=== PATIENT | male | born 1980 | race Caucasian/White ===

== ENCOUNTER 2017-05-21 02:47 | Emergency (ER) | payer MEDICAID ==
[~2017-05-21] VITALS: Ht 182.9 cm; Wt 81.8 kg
[~2017-05-21 02:47] MED LIST: CYCL-1 PO; CYCL-394 PO; HYDR-569 PO; METH-360 PO; NAPR-56 PO; NO HOME MEDS; ONDA8TAB9 PO
[2017-05-21] MEDS ORDERED: LORazepam 1 MG tablet PO ONE (03:25)
[2017-05-21] MEDS ORDERED: LORA-269 PO (04:19)
[2017-05-21 04:29] VITALS: BP 109/68
== END 2017-05-21 04:32 | disposition home or self-care (01) ==
LOC: ER 02:47
DX: F41.9 Anxiety disorder, unspecified (principal); G43.909 Migraine, unspecified, not intractable, without status migrainosus; G89.29 Other chronic pain; F31.9 Bipolar disorder, unspecified; F12.10 Cannabis abuse, uncomplicated; Z88.6 Allergy status to analgesic agent
CPT/HCPCS: 99284

== ENCOUNTER 2017-11-15 18:13 | Emergency (ER) | payer MEDICAID ==
[~2017-11-15] VITALS: Ht 182.9 cm; Wt 97.2 kg
[~2017-11-15 18:13] MED LIST changes: +HYDR-4383 PO; -HYDR-569 PO; +LORA-269 PO
[2017-11-15 18:26] VITALS: BP 122/76
[2017-11-15] MEDS ORDERED: SULF1TAB49 PO (19:29)
== END 2017-11-15 20:06 | disposition home or self-care (01) ==
LOC: ER 18:13
DX: L02.31 Cutaneous abscess of buttock (principal); L03.317 Cellulitis of buttock; G43.909 Migraine, unspecified, not intractable, without status migrainosus; G89.29 Other chronic pain; F12.90 Cannabis use, unspecified, uncomplicated; Z87.442 Personal history of urinary calculi; Z88.6 Allergy status to analgesic agent
CPT/HCPCS: 10060; 99283

== ENCOUNTER 2018-01-31 00:27 | Emergency (ER) | payer MEDICAID ==
[~2018-01-31] VITALS: Ht 182.9 cm; Wt 100.0 kg
[2018-01-31 00:27] VITALS: BP 108/69
== END 2018-01-31 03:36 | disposition left against medical advice (07) ==
LOC: ER 00:27
DX: R07.81 Pleurodynia (principal); Z53.21 Procedure and treatment not carried out due to patient leaving prior to being seen by health care provider

== ENCOUNTER 2018-02-02 00:20 | Emergency (ER) | payer MEDICAID ==
[~2018-02-02] VITALS: Ht 182.9 cm; Wt 93.1 kg
[2018-02-02] MEDS ORDERED: cyclobenzaprine 10mg tablet PO ONE (03:45)
[2018-02-02] MEDS ORDERED: naproxen 500mg tablet PO ONE (03:45)
[2018-02-02] MEDS ORDERED: NAPR-56 PO (03:46)
[2018-02-02] MEDS ORDERED: CYCL-1 PO (03:46)
[2018-02-02 04:01] VITALS: BP 112/75
== END 2018-02-02 04:03 | disposition home or self-care (01) ==
LOC: ER 00:20
DX: S20.211A Contusion of right front wall of thorax, initial encounter (principal); M62.838 Other muscle spasm; G43.909 Migraine, unspecified, not intractable, without status migrainosus; G89.29 Other chronic pain; F12.90 Cannabis use, unspecified, uncomplicated; Z98.890 Other specified postprocedural states; Z87.442 Personal history of urinary calculi; Z88.6 Allergy status to analgesic agent; Z79.899 Other long term (current) drug therapy; X50.1XXA Overexertion from prolonged static or awkward postures, initial encounter; Y93.01 Activity, walking, marching and hiking; Y92.89 Other specified places as the place of occurrence of the external cause; Y99.9 Unspecified external cause status
CPT/HCPCS: 71045; 99283

== ENCOUNTER 2018-02-26 23:16 | Emergency (ER) | payer MEDICAID, OTHER ==
[~2018-02-26] VITALS: Ht 182.9 cm; Wt 93.2 kg
[2018-02-26 23:21] VITALS: BP 131/89
[2018-02-26] MEDS ORDERED: SULF1TAB48 PO (23:53)
[2018-02-26] MEDS ORDERED: HYDR-4383 PO (23:53)
[2018-02-26] MEDS ORDERED: sulfamethoxazole/trimethoprim DS (800/160mg) tablet PO ONE (23:55)
== END 2018-02-27 01:07 | disposition home or self-care (01) ==
LOC: ER 23:17
DX: J34.0 Abscess, furuncle and carbuncle of nose (principal); G43.909 Migraine, unspecified, not intractable, without status migrainosus; F12.90 Cannabis use, unspecified, uncomplicated; G89.29 Other chronic pain; Z87.442 Personal history of urinary calculi; Z88.6 Allergy status to analgesic agent; Z79.899 Other long term (current) drug therapy; Z98.890 Other specified postprocedural states
CPT/HCPCS: 99283

== ENCOUNTER 2018-07-04 03:10 | Emergency (ER) | payer SELFPAY ==
[~2018-07-04] VITALS: Ht 182.9 cm; Wt 81.0 kg
[2018-07-04 03:13] VITALS: BP 112/82
[2018-07-04] MEDS ORDERED: ONDA4TAB6 PO (03:39)
[2018-07-04] MEDS ORDERED: HYDR-3965 PO (03:39)
[2018-07-04] MEDS ORDERED: AMOX500C2 PO ×2 (03:39→03:47)
[2018-07-04] MEDS ORDERED: acetaminophen 325mg tablet PO ONE (03:50)
== END 2018-07-04 04:03 | disposition home or self-care (01) ==
LOC: ER 03:10
DX: K04.7 Periapical abscess without sinus (principal); G43.909 Migraine, unspecified, not intractable, without status migrainosus; G89.29 Other chronic pain; F12.90 Cannabis use, unspecified, uncomplicated; Z98.890 Other specified postprocedural states; Z88.6 Allergy status to analgesic agent; Z79.899 Other long term (current) drug therapy
CPT/HCPCS: 99283

== ENCOUNTER 2018-09-15 00:30 | Emergency (ER) | payer SELFPAY ==
[~2018-09-15] VITALS: Ht 182.9 cm; Wt 88.6 kg
[~2018-09-15 00:30] MED LIST changes: +AMOX500C2 PO
--- NOTE | 2018-09-15 00:55 | NUR ---
aware, EKG WNL per doctor no protocol orders
--- NOTE | 2018-09-15 01:30 | NUR ---
Lois leon in [facility] - 09/15/18 at 0155 by EMELIA Maury Easley
--- NOTE | 2018-09-15 01:55 | NUR ---
Inform Dr Bennett regarding orders for patient, no orders at this time.
[2018-09-15] MEDS ORDERED: famotidine/PF 10 mg/ml inj IV ONE (02:10)
[2018-09-15] MEDS ORDERED: pantoprazole 40 MG vial IV ONE (02:10)
[2018-09-15] MEDS ORDERED: ondansetron/PF 4mg/2ml inj IV ONE (02:10)
[2018-09-15] MEDS ORDERED: normal saline 1000ML IV soln IVB ONE ×2 (02:10→04:25)
[2018-09-15] MEDS ORDERED: ESOMEPRAZOLE 40 MG VIAL IV ONE (02:15)
[2018-09-15 02:34] LABS: BASOPHILS # (AUTO) 0.1 X10'3 (0-0.2); BASOPHILS % (AUTO) 0.9 % (0-1); EOSINOPHILS # (AUTO) 0.1 X10'3 (0-0.9); EOSINOPHILS % (AUTO) 0.6 % (0-6); HEMOGLOBIN 12.9 g/dl (14.0-17.9); LYMPHOCYTES # (AUTO) 2.2 X10'3 (1.1-4.8); LYMPHOCYTES % (AUTO) 24.2 % (21-51); MEAN CORPUSCULAR HEMOGLOBIN 28.3 PG (27.0-31.0); MEAN CORPUSCULAR VOLUME 83.4 FL (78-98); MEAN PLATELET VOLUME 8.1 FL (7.4-10.4); MONOCYTES # (AUTO) 0.7 X10'3 (0-0.9); MONOCYTES % (AUTO) 7.6 % (2-12); NEUTROPHILS % (AUTO) 66.7 % (42-75); PLATELET COUNT 174 X10'3 (140-440); RED BLOOD COUNT 4.56 X10'6 (4.70-6.10); RED CELL DISTRIBUTION WIDTH 13.1 % (11.5-14.5); WHITE BLOOD COUNT 8.9 X10'3 (4.5-11.0)
[2018-09-15 02:47] LABS: ALANINE AMINOTRANSFERASE 23 U/L (12-78); ALBUMIN 3.7 G/DL (3.4-5.0); ALBUMIN/GLOBULIN RATIO 1.1 (1.1-1.5); ALKALINE PHOSPHATASE 42 IU/L (46-116); ANION GAP 5 (8-16); ASPARTATE AMINO TRANSFERASE 14 U/L (10-37); BILIRUBIN,TOTAL 0.3 MG/DL (0.1-1.0); BLOOD UREA NITROGEN 10 MG/DL (7-18); BUN/CREATININE RATIO 8.8 (5.4-32.0); CALCIUM 8.8 MG/DL (8.5-10.1); CHLORIDE 105 MMOL/L (99-107); CREATININE 1.14 MG/DL (0.60-1.10); GLUCOSE 87 MG/DL (70-104); LIPASE 114 U/L (73-393); SODIUM 141 MMOL/L (135-145); eGFR 73 ML/MIN
[2018-09-15 02:48] LABS: H PYLORI ANTIBODY NEGATIVE (Neg)
[2018-09-15] MEDS ORDERED: OMEP20CA11 PO (04:46)
[2018-09-15] MEDS ORDERED: ONDA4TAB6 PO (04:46)
[2018-09-15 05:11] VITALS: BP 122/68
== END 2018-09-15 05:12 | disposition home or self-care (01) ==
LOC: ER 00:31
DX: A08.4 Viral intestinal infection, unspecified (principal); R19.7 Diarrhea, unspecified; R11.2 Nausea with vomiting, unspecified; G43.909 Migraine, unspecified, not intractable, without status migrainosus; G89.29 Other chronic pain; F31.9 Bipolar disorder, unspecified; F12.90 Cannabis use, unspecified, uncomplicated; Z87.442 Personal history of urinary calculi; Z98.890 Other specified postprocedural states; Z88.8 Allergy status to other drugs, medicaments and biological substances; Z79.899 Other long term (current) drug therapy
CPT/HCPCS: 36415; 74176; 80053; 83605; 83690; 85025; 86677; 93005; 96361; 96374; 96375; 99284; J2405; J3490; J7030

== ENCOUNTER 2018-11-01 18:59 | Emergency (ER) | payer SELFPAY ==
[~2018-11-01] VITALS: Ht 182.9 cm; Wt 85.4 kg
[~2018-11-01 18:59] MED LIST changes: +OMEP20CA11 PO; +ONDA4TAB6 PO
[2018-11-01] MEDS ORDERED: FLUT16SP2 BOTHNARES (21:00)
[2018-11-01] MEDS ORDERED: AMOX500C2 PO (21:00)
[2018-11-01] MEDS ORDERED: LIDOcaine 4% (40 mg/ml) topical solution 50ml TP ONE (21:05)
[2018-11-01 21:41] VITALS: BP 110/61
== END 2018-11-01 21:47 | disposition home or self-care (01) ==
LOC: ER 18:59
DX: J34.89 Other specified disorders of nose and nasal sinuses (principal); G43.909 Migraine, unspecified, not intractable, without status migrainosus; G89.29 Other chronic pain; F31.9 Bipolar disorder, unspecified; Z87.442 Personal history of urinary calculi; Z98.890 Other specified postprocedural states; Z88.6 Allergy status to analgesic agent; Z79.2 Long term (current) use of antibiotics; Z79.899 Other long term (current) drug therapy
CPT/HCPCS: 99283

== ENCOUNTER 2020-10-19 00:03 | Emergency (ER) | payer BC ==
[~2020-10-19] VITALS: Ht 182.9 cm; Wt 80.8 kg
[~2020-10-19 00:03] MED LIST changes: +FLUT16SP2 BOTHNARES; -OMEP20CA11 PO; +OMEP20CA15 PO
[2020-10-19 00:07] VITALS: BP 113/71
== END 2020-10-19 03:21 | disposition home or self-care (01) ==
LOC: ER 00:04
DX: U07.1 COVID-19 (principal); R07.89 Other chest pain; G43.909 Migraine, unspecified, not intractable, without status migrainosus; G89.29 Other chronic pain; F31.9 Bipolar disorder, unspecified; F12.90 Cannabis use, unspecified, uncomplicated; Z87.442 Personal history of urinary calculi; Z72.89 Other problems related to lifestyle; Z98.890 Other specified postprocedural states; Z88.5 Allergy status to narcotic agent; Z79.899 Other long term (current) drug therapy
CPT/HCPCS: 71045; 99283

== ENCOUNTER 2021-09-06 19:43 | Emergency (ER) | payer BC ==
[~2021-09-06] VITALS: Ht 182.9 cm; Wt 88.6 kg
[2021-09-06 19:56] VITALS: BP 140/81
[2021-09-06] MEDS ORDERED: proCHLORperazine 10 MG/2 ml inj IV ONE (21:30)
[2021-09-06] MEDS ORDERED: diphenhydrAMINE 50 mg/ml inj IV ONE (21:30)
[2021-09-06] MEDS ORDERED: normal saline 1000ML IV soln IVB ONE (21:30)
== END 2021-09-06 21:47 | disposition home or self-care (01) ==
LOC: ER 19:44
DX: G43.909 Migraine, unspecified, not intractable, without status migrainosus (principal); G89.29 Other chronic pain; M54.50 Low back pain, unspecified; F31.9 Bipolar disorder, unspecified; F12.90 Cannabis use, unspecified, uncomplicated; Z88.6 Allergy status to analgesic agent
CPT/HCPCS: 99281; J7030

== ENCOUNTER 2024-05-28 19:02 | Emergency (ER) | payer SELFPAY ==
[~2024-05-28] VITALS: Ht 180.3 cm; Wt 82.1 kg
[2024-05-28 19:46] LABS: BASOPHILS # (AUTO) 0.1 X10'3 (0-0.2); BASOPHILS % (AUTO) 1.1 % (0-1); EOSINOPHILS # (AUTO) 0.1 X10'3 (0-0.9); EOSINOPHILS % (AUTO) 1.6 % (0-6); HEMATOCRIT 42.2 % (42.0-52.0); HEMOGLOBIN 14.5 g/dl (14.0-17.9); LYMPHOCYTES # (AUTO) 1.8 X10'3 (1.1-4.8); LYMPHOCYTES % (AUTO) 23.4 % (21-51); MEAN CORPUSCULAR HEMOGLOBIN 28.2 PG (27.0-31.0); MEAN CORPUSCULAR HGB CONC 34.2 g/dL (33.0-36.5); MEAN CORPUSCULAR VOLUME 82.3 FL (78-98); MEAN PLATELET VOLUME 8.2 FL (7.4-10.4); MONOCYTES # (AUTO) 0.5 X10'3 (0-0.9); MONOCYTES % (AUTO) 6.2 % (2-12); NEUTROPHILS # (AUTO) 5.2 X10'3 (1.8-7.7); NEUTROPHILS % (AUTO) 67.7 % (42-75); PLATELET COUNT 194 X10'3 (140-440); RED BLOOD COUNT 5.13 X10'6 (4.70-6.10); RED CELL DISTRIBUTION WIDTH 12.9 % (11.5-14.5); WHITE BLOOD COUNT 7.7 X10'3 (4.5-11.0)
[2024-05-28] MEDS ORDERED: iohexol 300mg/ml 100ml inj. ONE (19:57)
[2024-05-28 19:58] LABS: ALANINE AMINOTRANSFERASE 38 U/L (12-78); ALBUMIN 3.8 G/DL (3.4-5.0); ALBUMIN/GLOBULIN RATIO 1.4 (1.1-1.5); ALKALINE PHOSPHATASE 48 IU/L (46-116); ANION GAP 4 (8-16); ASPARTATE AMINO TRANSFERASE 30 U/L (10-37); BILIRUBIN,TOTAL 0.2 MG/DL (0.1-1.0); BLOOD UREA NITROGEN 26 MG/DL (7-18); BUN/CREATININE RATIO 21.1 (10.0-20.0); CALCIUM 8.7 MG/DL (8.5-10.1); CHLORIDE 104 MMOL/L (99-107); CREATININE 1.23 MG/DL (0.60-1.10); GLUCOSE 95 MG/DL (70-104); POTASSIUM 3.8 MMOL/L (3.5-5.1); SODIUM 139 MMOL/L (135-145); TOTAL CARBON DIOXIDE 30.9 MMOL/L (24-32); TOTAL PROTEIN 6.6 G/DL (6.4-8.2); eCRCL 84 ML/MIN; eGFR 65 ML/MIN
[2024-05-28 20:54] LABS: BILIRUBIN,URINE NEGATIVE (Neg); CLARITY,URINE CLEAR (Clear); COLOR,URINE YELLOW (Yellow); GLUCOSE, URINE NEGATIVE (Neg); KETONES,URINE NEGATIVE (Neg); LEUKOCYTE ESTERASE ,URINE NEGATIVE (Neg); NITRITES, URINE NEGATIVE (Neg); OCCULT BLOOD,URINE NEGATIVE (Neg); PROTEIN,URINE NEGATIVE (Neg); UROBILINOGEN,URINE 0.2 E.U/dL (0.2-1.0)
[2024-05-28 20:59] LABS: UA COLLECTION TYPE CLN CATCH MIDSTREAM
[2024-05-28 21:47] VITALS: BP 106/71; PULSE 98; RESP 18; TEMP 98.7; O2SAT 100
== END 2024-05-28 21:49 | disposition home or self-care (01) ==
LOC: ER 19:03
DX: R30.0 Dysuria (principal); K59.00 Constipation, unspecified; Z88.8 Allergy status to other drugs, medicaments and biological substances
CPT/HCPCS: 36415; 51798; 74177; 76870; 80053; 81003; 85025; 87491; 87591; 93976; 99285; Q9967

== ENCOUNTER 2024-08-08 15:59 | Emergency (ER) | payer MEDICAID ==
[~2024-08-08] VITALS: Ht 180.3 cm; Wt 80.0 kg
[2024-08-08 16:10] VITALS: BP 109/70; PULSE 70; RESP 18; O2SAT 96
--- NOTE | 2024-08-08 16:28 | RADIOLOGY REPORT ---
EXAM: DI CHEST,SINGLE VIEW HISTORY: CP COMPARISON: CHEST,SINGLE VIEW on DOS: 10/19/20 TECHNIQUE: PA upright view of the chest was performed. FINDINGS: No pneumothorax, consolidative infiltrates, or pulmonary edema. There is mild central peribronchial t hickening. The heart is not enlarged. IMPRESSION: Mild reactive airways disease. The lungs are otherwise clear.
[2024-08-08 16:29] LABS: MEAN PLATELET VOLUME 7.5 FL (7.4-10.4); RED CELL DISTRIBUTION WIDTH 14.0 % (11.5-14.5)
[2024-08-08 16:42] LABS: CREATININE 1.32 MG/DL (0.60-1.10); TOTAL CARBON DIOXIDE 33.0 MMOL/L (24-32); eCRCL 78 ML/MIN; eGFR 59 ML/MIN
[2024-08-08 16:49] LABS: PRO BRAIN NATRIURETIC PEPTIDE 72 PG/ML (0-125)
--- NOTE | 2024-08-08 17:41 | Physician Documentation ---
History of Present Illness ~ Chief Complaint: Chest Pain Stated Complaint: "I FEEL LIKE I AM HAVING AN ISSUE WITH MY HEART" Time Seen by MD: 17:43 Primary Medical Doctor: LUCÍA [facility] This is a 44-year-old male who presents with three days of left-sided intermittent nonradiating chest pain described as sharp and tight that is reproducible with motion in certain positions but not reproducible with palpation. Patient reports feeling of shortness of breath associated with chest pain. Patient reports no nausea or diaphoresis. Medication Reconciliation Allergies: Coded Allergies: ketorolac (Verified Allergy, Unknown, 05/28/24) Scheduled Amoxicillin Trihydrate (Amoxicillin), 1 CAP PO BID Cyclobenzaprine HCl (Cyclobenzaprine HCl), 10 MG PO TID Cyclobenzaprine* (Cyclobenzaprine*), 1 TABLET PO qhs Fluticasone Propionate (Flonase), 2 SPRAYS BOTHNARES DAILY Hydrocodone/Acetaminophen (Homer 5-325 Tablet), 1-2 TABLET PO Q4H Hydrocodone/Acetaminophen (Homer 5-325 Tablet), 1 TAB PO Q12H PRN Methocarbamol (Robaxin-750), 1 TAB PO Q12H Naproxen (Naproxen), 500 MG PO Q12H Omeprazole (Omeprazole), 2 CAP PO BIDAC Ondansetron (Zofran Odt), 1 TABLET PO Q8H Scheduled PRN Cyclobenzaprine* (Cyclobenzaprine*), 1 TABLET PO Q8H PRN for muscle spasms Hydrocodone/Acetaminophen (Homer 5-325 Tablet), 1 TABLET PO TID PRN for pain Lorazepam (Ativan), 1 TAB PO Q12H PRN for anxiety Ondansetron Hcl (Zofran), 1 TAB PO Q6H PRN for nausea/vomiting Miscellaneous Medications Home Med List (No Home Medications), (Reported) Past Medical History Past Medical History: Migraine, Kidney Stones, Chronic Back Pain, Bipolar Past Surgical History: orthopedic surgeries Other Past Family History: NONE Alcohol Use: Sober Drug Use: marijuana, other Lives with: Spouse, Family Lives In: Home Occupation: employed Review of Systems ROS Nonradiating intermittent chest pain as stated above in the HPI, otherwise all systems are reviewed and negative. Physical Exam Vital Signs: Temperature: 98.7, Source: Temporal, Heart Rate: 70, Respiratory Rate: 18, BP: 109/70, Pulse Oximetry: 96, Weight: 79.950 Oxygen Flow Rate: 0 Physical Exam VITALS: Reviewed and as above. GENERAL: Alert, nontoxic appearing, no apparent distress. RESPIRATORY: No increased work of breathing, no respiratory distress, speaking in full clear sentences, clear lung sounds in all leonardo CHEST: Nontender to palpation CV: Regular rate and rhythm no murmur SKIN: Warm and dry, no rash Progress Results/Orders Results/Orders Vital Signs 08/08/24 08/08/24 16:10 18:15 Temp 98.7 98.7 Pulse 70 Resp 18 B/P (MAP) 109/70 Pulse Ox 96 O2 Flow Rate 0 Laboratory Tests Test 08/08/24 16:18 White Blood Count 6.2 Red Blood Count 5.03 Hemoglobin 14.3 Hematocrit 41.2 L Mean Corpuscular Volume 81.8 Mean Corpuscular Hemoglobin 28.5 Mean Corpuscular Hemoglobin Concent 34.8 Red Cell Distribution Width 14.0 Platelet Count 204 Mean Platelet Volume 7.5 Neutrophils (%) (Auto) 70.3 Lymphocytes (%) (Auto) 21.8 Monocytes (%) (Auto) 6.9 Eosinophils (%) (Auto) 0.1 Basophils (%) (Auto) 0.9 Neutrophils # (Auto) 4.4 Lymphocytes # (Auto) 1.4 Monocytes # (Auto) 0.4 Eosinophils # (Auto) 0.0 Basophils # (Auto) 0.1 CBC Comment Sodium Level 142 Potassium Level 4.9 Chloride Level 106 Carbon Dioxide Level 33.0 H Anion Gap 3 L Blood Urea Nitrogen 12 Creatinine 1.32 H Estimated GFR/1.73 m2 59 BUN/Creatinine Ratio 9.1 L Glucose Level 91 Calcium Level 9.0 Total Bilirubin 0.4 Aspartate Amino Transf (AST/SGOT) 17 Alanine Aminotransferase (ALT/SGPT) 26 Alkaline Phosphatase 49 Troponin I High Sensitivity 4 Pro-B-Type Natriuretic Peptide 72 Total Protein 7.5 Albumin 4.2 Globulin 3.3 Albumin/Globulin Ratio 1.3 Chemistry Comments EKG/XRAY/CT/US/VASC/MRI EKG : Additional Comment EKG at 1606 interpreted by myself as sinus rhythm at a rate of 72, normal axis, no ST segment elevation or depression Chest X-Ray : Additional Comments EXAM: DI CHEST,SINGLE VIEW HISTORY: CP COMPARISON: CHEST,SINGLE VIEW on DOS: 10/19/20 TECHNIQUE: PA upright view of the chest was performed. FINDINGS: No pneumothorax, consolidative infiltrates, or pulmonary edema. There is mild central peribronchial thickening. The heart is not enlarged. IMPRESSION: Mild reactive airways disease. The lungs are otherwise clear. Electronically Signed by:PEG VARGAS MD Date & Time: 08/08/241624 Dictated by: PEG VARGAS MD Dictation date and time: 08/08/24 161 I have reviewed and agree with the radiology report. I have reviewed and interpreted the imaging as: No focal consolidation or pneumonia Heart Score: Heart Score Response (Comments) Value History Moderate Suspicious 1 EKG Normal 0 Age <45 0 Risk Factors No known risk factors 0 Troponin Normal limit 0 Total 1 Medical Decision Making Findings MSE performed in triage and patient returned to ED lobby by nursing staff to await available ED room, ACS workup initiated This 44-year-old male presented with intermittent left-sided nonradiating chest pain for the past three days, it was reassuring that the pain was positional and not exertional. EKG did not demonstrate evidence of ischemia, infarction, or dysrhythmia, troponin was not elevated, other labs did not demonstrate evidence of an electrolyte or metabolic abnormality and chest x-ray did not demonstrate evidence of intrathoracic process. PERC negative. Heart score of one due to moderately suspicious chest pain, otherwise patient does not have risk factors including not a smoker, not a diabetic, no high blood pressure, no hyperlipidemia. Patient is otherwise well-appearing and remainder of physical e xam benign, vital signs stable. Patient is appropriate for outpatient follow up. Patient provided follow up instructions and careful return to care precautions which he verbalized understanding of. Differential Dx:Considerations: Include: angina, aortic dissection, chest wall pain, cholelithiasis, costochondritis, esophageal reflux/spasm, gastritis, herpes zoster, myocardial infarction, pericarditis, pleuritis, pneumonia, pneumothorax, pulmonary embolus Departure Time of Disposition: 18:00 Disposition: 01 HOME / SELF CARE / HOMELESS Impression: Primary Impression: Chest pain Qualified Codes: R07.9 - Chest pain, unspecified Condition: Improved Discharge Instructions: Nonspecific Chest Pain, Adult Additional Instructions: Your EKG, labs, and physical exam were reassuring there were some nonspecific findings on your chest x-ray as we discussed, please follow up with your primary care provider in the next few days. Please return to the emergency department for any new or worsening concerning symptoms. Referrals: NO PRIMARY CARE PROVIDER (PCP) Education Educated: Patient Educated regarding: diagnosis, treatment, prognosis, need for follow up Signature Scribe Signature: No scribe Attestation: The note accurately reflects work and decisions made by me.BETZAIDA Rodarte 08/08/24 20:08 NENITA SALDANA Aug 08, 2024 17:41
[2024-08-08 18:15] VITALS: TEMP 98.7
--- NOTE | 2024-08-09 05:25 | ELECTROCARDIOGRAPH REPORT ---
[facility] Test Date: 2024-08-08 Test Time: 16:06:53 Pat Name: MARINE REYES Department: EMERGENCY ROOM [id number] Room: Gender: M Student Records Specialist: DANIELLE : 1980 Requested By: MELISSA KITCHEN Order Number: [id number] Reading MD: Dr. Melissa Kitchen Measurements Intervals Mckenzie Rate: 72 P: 74 LA: 160 QRS: 61 QRSD: 96 T: 54 QT: 352 QTc: 386 Interpretive Statements Sinus rhythm ST elev, probable normal early repol pattern Electronically Signed On 08-09-2024 6:10:[address] Melissa Kitchen Please click the below link to view image of tracing.
== END 2024-08-08 18:17 | disposition home or self-care (01) ==
LOC: ER 16:00
DX: R07.89 Other chest pain (principal); F12.90 Cannabis use, unspecified, uncomplicated; F31.9 Bipolar disorder, unspecified; G43.909 Migraine, unspecified, not intractable, without status migrainosus; Z88.8 Allergy status to other drugs, medicaments and biological substances; Z79.899 Other long term (current) drug therapy; Z87.442 Personal history of urinary calculi
CPT/HCPCS: 36415; 71045; 80053; 83880; 84484; 85025; 93005; 99285